=== PATIENT | male | born 1965 | race Caucasian/White ===

== ENCOUNTER 2024-03-18 02:21 | Day surgery (SDC) | payer BC, SELFPAY ==
[2024-03-18] VITALS (13 sets, daily range): BP systolic 85–188; BP diastolic 55–111; PULSE 36–54; RESP 16–18; TEMP 35.9–36.9; O2SAT 94–99; BMI 33.9; BMI 34.4
--- NOTE | 2024-03-18 02:25 | ED.ABDPAIN ---
HPI - Abdominal Pain General Time Seen by Provider: 02:30 Date Seen: 03/18/24 Chief Complaint: Abdominal Pain Stated Complaint: upper R abdominal pain Time Seen by Provider: 03/18/24 02:25 Source: patient, RN notes reviewed and old records reviewed Mode of arrival: ambulatory Limitations: no limitations History of Present Illness HPI narrative: 59-year-old male who presents today with abdominal pain. Patient notes right upper quadrant abdominal pain started after lunch today. Nausea with no vomiting. Says his abdomen feels bloated. No chest pain or shortness of breath. No fevers or chills. Prior nephrectomy. Related Data Home Medications ?Medication ?Instructions ?Recorded ?Confirmed lisinopril 10 mg tablet 10 mg PO DAILY 03/18/24 03/18/24 phentermine 37.5 mg capsule 37.5 mg PO DAILY 03/18/24 03/18/24 sildenafil 100 mg tablet 100 mg PO DAILY PRN 03/18/24 03/18/24 topiramate 25 mg tablet 25 mg PO DAILY 03/18/24 03/18/24 Previous Rx's ?Medication ?Instructions ?Recorded hydrocodone 5 mg-acetaminophen 325 1 - 2 tab PO Q6H PRN Pain #20 tabs 03/18/24 mg tablet Allergies Allergy/AdvReac Type Severity Reaction Status Date / Time Penicillins Allergy Verified 03/18/24 02:33 PFSH PFSH Family History (Updated 03/18/24 @ 07:07 by Severo Avendaño MD) Mother Ovarian cancer Other CHF (congestive heart failure) Social History Narrative: Single, [id number] history of smoking quit about 10 years ago but recently started occasional cigarettes rare use of alcohol. 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 What is your current living situation?: I presently have a place to live Problems where you live: no known problems Problems where you live details: n/a In the past 12 months, utilities in danger of being shut off: no In past 12 months, lack of transportation kept you from medical appts, meetings, work, or getting things needed for daily living: no In the past 12 mos, have been you worried that your food would run out before you had money to buy more?: never true In the past 12 mos, the food you bought just didn't last and you didn't have money to buy more?: never true Smoking Status: Light tobacco smoker What tobacco products do you use: cigarettes Do you use any of these nicotine containing products: None Nicotine containing products detail: Smokes two cigarettes a day. Quit 10 years ago. Then started smoking two cigarettes/day about 6 months ago. Was previously a 20 year smoker. How often do you have a drink containing alcohol: 2-4 times a month Alcohol type: other Alcohol type details: [facility] AUDIT-C Alcohol total score: 2 Non-prescribed substance use: denies use Caffeine: Yes How often does anyone, including family, friends and others, physically hurt you: never How often does anyone, including family, friends and others, insult or talk down to you: never How often does anyone, including family, friends and others, threaten you with harm: never How often does anyone, including family, friends and others, scream or curse at you: never service: No Exam Narrative: Exam Narrative: General: Well-developed and well-nourished, no acute distress Head: Atraumatic and normocephalic Eyes: Pupils are equal reactive, extraocular motions intact, conjunctiva clear ENT: External nose and ears are normal, posterior pharynx without erythema or exudate Neck: No midline cervical tenderness, full spontaneous range of motion the neck, trachea midline, no adenopathy Heart: Bradycardic rate and rhythm no murmurs or thrills Lungs: Clear to auscultation bilaterally without wheezes or crackles Abdomen: Soft, RUQ tenderenss, nondistended with active bowel sounds Musculoskeletal: No tenderness, deformity, or edema Neurologic: Awake, alert, and oriented x3, no gross focal neurologic deficits, cranial nerves intact as tested Psych: Mood and affect are appropriate Skin: No rashes Const: Vital Signs, click to edit/add: Vital Signs - 24 hr 03/18/24 02:30 03/18/24 03:04 Temperature 96.7 F L Pulse Rate [Pulse Oximeter] 44 L 44 L Respiratory Rate 16 18 Blood Pressure [Ri ght Upper Arm] 188/111 H 151/99 H Pulse Oximetry 99 99 Oxygen Delivery Me thod Room Air Room Air Course Course ED Course: Patient seen examined, presents with right upper quadrant abdominal pain today. Patient reports history of prior nephrectomy. On exam, bradycardic but otherwise vital is stable. Labs are ordered along with right upper quadrant ultrasound, Dilaudid and Zofran. Did consider CT abdomen pelvis but patient has prior nephrectomy who would like to avoid IV contrast, noncontrast CT with poor sensitivity and specificity for cholecystitis. EKG ordered and independently interpreted by me performed at 2:33 a.m. with demonstrates rate 43, sinus rhythm, QTC of 380, [place] 170, no acute ischemic changes. Reevaluation(s) Time of Reevaluation #1: 03:28 Reevaluation #1: Labs independently interpreted by me with normal CBC, normal basic panel other than slightly elevated glucose at 136, normal hepatic panel, normal lipase. Minimal improvement after Dilaudid IV. Given normal lab evaluation so far with no indication of the biliary obstruction, will proceed with ultrasound but urinalysis ordered to evaluate for hematuria possible kidney stone. Time of Reevaluation #2: 04:26 Reevaluation #2: Patient more comfortable after 2nd dose of Dilaudid. Ultrasound independently interpreted by me with no wall thickening or pericholecystic fluid but there are multiple gallstones including 1 that appears to be lodged in the gallbladder neck. This revealed sources patient's pain, however with hematuria concern for possible kidney stone as well which could be catastrophic in this patient with unilateral kidney, CT ordered to evaluate for secondary cause of pain, will do this without contrast. Time of Reevaluation #3: 05:09 Reevaluation #3: Reviewed CT scan which again demonstrates gallbladder stones including 1 that appears to be lodged in the gallbladder neck, no evidence for ureteral stone or renal pathology. Plan to discuss with General surgery. Additional Reevaluation(s): 6:04 a.m. care discussed with Dr. Lucio, general surgery who recommends admission hospitalist and plan for surgery later this afternoon. Discussed antibiotics, patient will be started on cefepime and Flagyl given penicillin allergy. 6:09 a.m. care discussed with Dr. Avendaño, hospitalist for admission. Vital Signs Vital signs: Initial Vital Signs Temperature 96.7 F L 03/18/24 02:30 Temperature Source Temporal Artery Scan 03/18/24 02:30 Pulse Rate 44 L 03/18/24 02:30 Respiratory Rate 16 03/18/24 02:30 Blood Pressure 188/111 H 03/18/24 02:30 Blood Pressure Mean 136 H 03/18/24 02:30 Blood Pressure Position Supine 03/18/24 02:30 Pulse Oximetry 99 03/18/24 02:30 Oxygen Delivery Method Room Air 03/18/24 02:30 Vital Signs Temperature 96.7 F L 03/18/24 02:30 Pulse Rate 44 L 03/18/24 02:30 Respiratory Rate 16 03/18/24 02:30 Blood Pressure 188/111 H 03/18/24 02:30 Pulse Oximetry 99 03/18/24 02:30 Oxygen Delivery Method Room Air 03/18/24 02:30 Temperature 98.5 F 03/18/24 14:45 Pulse Rate 52 L 03/18/24 15:45 Respiratory Rate 16 03/18/24 15:45 Blood Pressure 124/82 03/18/24 15:45 Pulse Oximetry 98 03/18/24 15:45 Oxygen Delivery Method Room Air 03/18/24 15:45 Oxygen Flow Rate 0 03/18/24 15:45 Medications Administered Medications: Discontinued Medications Generic Name Dose Route Start Last Admin Trade Name Freq PRN Reason Stop Dose Admin Bupivacaine HCl 30 ml 03/18/24 14:01 03/18/24 13:30 Bupivacaine 0.25% 30 Ml INJECTION 03/18/24 14:02 20 ml ONCE ONE Administration Fentanyl 50 mcg 03/18/24 13:01 03/18/24 15:10 Fentanyl 100 Mcg/2 Ml Inj IVP 50 mcg Q5M PRN Administration Pain Hydromorphone HCl 0.5 mg 03/18/24 02:39 03/18/24 02:50 Hydromorphone 0.5 Mg/0.5 Ml Inj IVP 03/18/24 02:40 0.5 mg ONCE ONE Administration Hydromorphone HCl 0.5 mg 03/18/24 03:27 03/18/24 03:39 Hydromorphone 0.5 Mg/0.5 Ml Inj IVP 03/18/24 03:28 0.5 mg ONCE ONE Administration Hydromorphone HCl 0.5 mg 03/18/24 07:22 03/18/24 08:00 Hydromorphone 0.5 Mg/0.5 Ml Inj IVP 0.5 mg Q1H PRN Administration Moderate Pain Hydroxyzine Pamoate 25 mg 03/18/24 13:01 03/18/24 15:10 Hydroxyzine Pamoate 25 Mg Capsule PO 03/18/24 13:02 25 mg ONCE ONE Administration Cefepime HCl 1 gm/ Sodium 100 mls @ 200 mls/hr 03/18/24 06:05 03/18/24 08:11 Chloride IVPB 03/18/24 06:06 200 mls/hr ONCE ONE Administration Metronidazole 500 mg in 100 mls @ 100 mls/hr 03/18/24 06:05 03/18/24 06:42 Metronidazole IVPB 03/18/24 07:04 100 mls/hr ONCE ONE Administration Sodium Chloride 1,000 mls @ 100 mls/hr 03/18/24 07:27 03/18/24 07:54 0.9 % Sodium Chloride 1000 Ml IV 100 mls/hr .Q10H FRITZ Administration Dextrose/Sodium Chloride 1,000 mls @ 125 mls/hr 03/18/24 08:00 03/18/24 08:10 5 % Dextrose/0.9% Sod Chloride IV 125 mls/hr .Q8H FRITZ Administration Cefazolin Sodium 2 gm/ Sodium 100 mls @ 200 mls/hr 03/18/24 13:22 03/18/24 12:50 Chloride IVPB 03/18/24 13:23 200 mls/hr ONCE ONE Administration Lisinopril 10 mg 03/18/24 09:00 03/18/24 10:43 Lisinopril 10 Mg Tablet PO 10 mg DAILY FRITZ Administration Ondansetron HCl 4 mg 03/18/24 02:39 03/18/24 02:51 Ondansetron 2 Mg/Ml Inj IVP 03/18/24 02:40 4 mg ONCE ONE Administration Sodium Chloride 5 ml 03/18/24 09:00 03/18/24 08:00 Sodium Chloride 0.9 % (Flush) 10 Ml Syringe IVF 5 ml BID FRITZ Administration MDM - Abdominal Pain Lab Data Labs: Lab Results 03/18/24 03/18/24 Range/Units 02:45 03:30 WBC 9.71 (4.50-11.00) K/uL RBC 4.71 (4.30-5.90) m/uL Hgb 14.3 (13.5-17.5) gm/dL Hct 42.8 (37.0-53.0) % MCV 91 (80-100) fL MCH 30 (26-34) pg MCHC 33 (32-36) gm/dL RDW Coeff of Kishan 12.3 (11.5-15.5) % Plt Count 229 (140-440) K/uL Neut % (Auto) 68.1 (42.0-72.0) % Lymph % (Auto) 21.8 (20-44) % [place] % (Auto) 7.2 (0.0-11.0) % Eos % (Auto) 1.8 (0.0-7.0) % Baso % (Auto) 0.3 (0.0-3.0) % Neut # (Auto) 6.61 (1.7-7.0) K/uL Lymph # (Auto) 2.12 (0.90-2.90) K/uL [place] # (Auto) 0.70 (0.00-0.90) K/UL Eos # (Auto) 0.17 (0.00-0.50) K/uL Baso # (Auto) 0.03 (0.00-0.30) K/uL Abs Immat Gran (auto) 0.08 (0.00-0.30) K/uL Imm/Tot Granulo (auto) 0.8 % Sodium 139 (135-149) mmol/L Potassium 4.1 (3.6-5.1) mmol/L Chloride 106 (96-114) mmol/L Carbon Dioxide 24 (20-32) mmol/L Anion Gap 9 (7-15) mEq/L BUN 26 (7-30) mg/dL Creatinine 1.5 (0.5-1.5) mg/dL Estimated Creat Clear 58.92 Estimated GFR 54 ml/min Glucose 136 H (60-115) mg/dL Calcium 10.9 H (8.4-10.6) mg/dL Magnesium 2.0 (1.5-2.6) mg/dL Total Bilirubin 0.6 (0.1-1.5) mg/dL Direct Bilirubin 0.2 (0.0-0.5) mg/dL AST 29 (12-35) U/L ALT 20 (4-50) U/L Alkaline Phosphatase 88 (40-150) U/L Total Protein 7.6 (6.0-8.3) g/dL Albumin 4.7 (3.3-5.0) g/dL Lipase 189 (23-300) U/L Urine Color Yellow (Yellow) Urine Appearance Clear (Clear) Urine pH 6.5 (5.0-8.5) Ur Specific [place] >= 1.030 (1.000-1.030) Urine Protein Trace A (Negative) Urine Glucose (UA) Negative (Negative) Urine Ketones Negative (Negative) Urine Blood Trace-intact A (Negative) Urine Nitrite Negative (Negative) Urine Bilirubin Negative (Negative) Urine Urobilinogen 1.0 (0.2-1.0) Ur Leukocyte Esterase Negative (Negative) Urine RBC 0-2 (0-2) Urine WBC 0-2 (0-5) Ur Squamous Epith Cells Few (None-Few) Amorphous Sediment Few A (None) Urine Bacteria Few A (None) Discharge Plan Discharge Clinical Impression: Cholelithiasis, Biliary colic, Bradycardia, Acute cholecystitis Patient Disposition: Admitted As Observation Activity Level: Activity as Tolerated and No strenuous activity Activity Detail: No lifting more than 20 lb for 2 weeks. Discharge Diet: Regular
--- NOTE | 2024-03-18 02:40 | CRLHL7_ITS ---
For Patients: As a result of the Century Cures Act, medical imaging exams and procedure reports are released immediately into your electronic medical record. You may view this report before your referring provider. If you have questions, please contact your health care provider. INDICATION: Right upper quadrant abdomen pain. TECHNIQUE: Ultrasound abdomen limited. Sonographic images of the right upper quadrant were obtained using kirk-scale and color Doppler images. COMPARISON: None. FINDINGS: Liver: Normal in size and echotexture. No suspicious masses. No intrahepatic biliary dilatation. Gallbladder: Gallbladder is moderately distended. Multiple stones present with the largest measuring 1 cm. Normal wall thickness. No pericholecystic fluid. Positive Cabrales`s sign. Common bile duct: 2 mm. Pancreas: Unremarkable. Right kidney: Normal in size. Normal echotexture and cortex. No suspicious masses, stones, or hydronephrosis. Vasculature: Proximal abdominal aorta: Normal in caliber. IVC: Patent. Main portal vein: Patent. Ascites: None visualized. IMPRESSION: Cholelithiasis with moderate gallbladder distention and positive Cabrales`s sign but no wall thickening. Acute cholecystitis is possible but not definite. Dictated by Abdiel Acuna MD @ 03/18/2024 4:34:10 AM (Electronically Signed)
[2024-03-18 02:49] LABS: Basophils Absolute Auto 0.03 K/uL (0.00-0.30); Basophils Percent Auto 0.3 % (0.0-3.0); Eosinophils Absolute Auto 0.17 K/uL (0.00-0.50); Eosinophils Percent Auto 1.8 % (0.0-7.0); Hematocrit 42.8 % (37.0-53.0); Hemoglobin* 14.3 gm/dL (13.5-17.5); Immature Granulocytes Abs Auto 0.08 K/uL (0.00-0.30); Immature Granulocytes Pct Auto 0.8 %; Lymphocytes Absolute Auto 2.12 K/uL (0.90-2.90); Lymphocytes Percent Auto 21.8 % (20-44); Mean Corpuscular HGB Conc 33 gm/dL (32-36); Mean Corpuscular Hemoglobin 30 pg (26-34); Mean Corpuscular Volume 91 fL (80-100); Monocytes Percent Auto 7.2 % (0.0-11.0); Neutrophils Absolute Auto 6.61 K/uL (1.7-7.0); Neutrophils Percent Auto 68.1 % (42.0-72.0); Platelet Count* 229 K/uL (140-440); RDW Coefficient of Variation % 12.3 % (11.5-15.5); Red Blood Count 4.71 m/uL (4.30-5.90); White Blood Count* 9.71 K/uL (4.50-11.00)
[2024-03-18] MEDS: HYDROmorphone 0.5 mg/0.5 ml inj IVP ×3 (02:50→08:00)
[2024-03-18 02:51] LABS: Slide Review Reflex No
[2024-03-18] MEDS: ONDANSETRON 2 MG/ML inj 4 MG IVP (02:51)
[2024-03-18 03:02] LABS: Albumin* 4.7 g/dL (3.3-5.0); Chloride* 106 mmol/L (96-114)
[2024-03-18 03:03] LABS: Potassium* 4.1 mmol/L (3.6-5.1); Sodium* 139 mmol/L (135-149)
[2024-03-18 03:05] LABS: Alkaline Phosphatase* 88 U/L (40-150); Anion Gap 9 mEq/L (7-15); Aspartate Amino Transferase* 29 U/L (12-35); Bilirubin Direct* 0.2 mg/dL (0.0-0.5); Bilirubin Total* 0.6 mg/dL (0.1-1.5); Blood Urea Nitrogen* 26 mg/dL (7-30); Calcium* 10.9 mg/dL (8.4-10.6); Carbon Dioxide* 24 mmol/L (20-32); Creatinine* 1.5 mg/dL (0.5-1.5); Est. Creatinine Clearance* 58.92; Estimated Glomerular Filt Rate 54 ml/min; Glucose* 136 mg/dL (60-115); Lipase* 189 U/L (23-300); Total Protein* 7.6 g/dL (6.0-8.3)
[2024-03-18 03:06] LABS: Alanine Aminotransferase* 20 U/L (4-50)
[2024-03-18 03:39] LABS: Appearance Urine Clear (Clear); Bilirubin Urine Negative (Negative); Blood Urine Trace-intact (Negative); Color Urine Yellow (Yellow); Glucose Urine Negative (Negative); Ketones Urine Negative (Negative); Leukocyte Esterase Urine Negative (Negative); Nitrite Urine Negative (Negative); Protein Urine Trace (Negative); Specific Gravity Urine >= 1.030 (1.000-1.030); pH Urine 6.5 (5.0-8.5)
[2024-03-18 03:49] LABS: Amorphous Sediment Urine Few; Bacteria Urine Few; RBC Urine 0-2 (0-2); Squamous Epithelial Cell Urine Few (None-Few); WBC Urine 0-2 (0-5)
--- NOTE | 2024-03-18 04:27 | CRLHL7_ITS ---
For Patients: As a result of the Century Cures Act, medical imaging exams and procedure reports are released immediately into your electronic medical record. You may view this report before your referring provider. If you have questions, please contact your health care provider. INDICATION: Right abdominal pain and hematuria. TECHNIQUE: CT abdomen and pelvis without contrast. COMPARISON: None. FINDINGS: Lower chest: Noncalcified 7 mm nodule in the right lung base on series 3, image 20. Liver: Normal in size and attenuation. No suspicious masses. Gallbladder and bile ducts: Cholelithiasis with gallbladder dilatation and evidence of wall thickening. No biliary dilatation. Pancreas: Unremarkable. No mass or inflammation. Spleen: Normal in size. No masses. Adrenal glands: Nonspecific enlargement of the right adrenal gland. Kidneys: Normal right kidney. No current kidney or ureteral stone and no hydronephrosis or perinephric edema. Left kidney is absent. GI tract: Unremarkable. Normal in caliber. No sign of mass or inflammation. Normal appendix. Vasculature: Abdominal aorta is normal in caliber. Lymph nodes: No lymphadenopathy. Peritoneum/Abdominal Wall: Unremarkable. No sign of mass or infiltration. No free air or significant free fluid. Pelvis: Unremarkable. No pelvic masses. Bones: Unremarkable for age. IMPRESSION: 1. Cholelithiasis with evidence of gallbladder wall inflammation consistent with cholecystitis. 2. Remainder of the exam is unremarkable. 3. Left kidney is absent. No sign of kidney or ureteral stone or hydronephrosis in the right kidney. Please note that all CT scans at this facility use dose modulation, iterative reconstruction, and/or weight-based dosing when appropriate to reduce radiation dose to as low as reasonably achievable. Dictated by Abdiel Acuna MD @ 03/18/2024 5:23:10 AM (Electronically Signed)
[2024-03-18] MEDS: metroNIDAZOLE 500 MG/100 ML PIGGYBACK 100 MG IVPB (06:42)
--- NOTE | 2024-03-18 06:59 | W.PM.THH&P_ITS ---
Telehealth- H&P: HPI History of Present Illness Time Seen by Provider: 06:33 Date Seen: 03/18/24 Chief complaint: upper R abdominal pain Narrative: Richard Elmore is seen as an Interactive Telehealth visit. Richard Elmore is a 59 year old maleWith remote history of left nephrectomy for hypernephroma who was in his baseline state of health until yesterday postprandially he felt a sense of abdominal fullness. Last evening after supper he developed some mild right sided abdominal discomfort. He went to bed and then awoke with much more severe right upper quadrant abdominal pain. No nausea vomiting or fever. Pain reached its limit of tolerance so he he presented to the emergency room where he was discovered to have some early cholecystitis. Prior abdominal surgeries include left nephrectomy in 2012 and prior appendectomy. In general he is in good health with some mild essential hypertension. No personal family history of thrombophilia. Review of Systems Status of ROS: Reports: 10 or more systems reviewed and unremarkable except as noted in History and below PFSH PFS Family History (Updated 03/18/24 @ 07:07 by Severo Avendaño MD) Mother Ovarian cancer Other CHF (congestive heart failure) Social History Narrative: Single, [id number] history of smoking quit about 10 years ago but recently started occasional cigarettes rare use of alcohol. 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 Do you use any of these nicotine containing products: None Non-prescribed substance use: denies use Meds Home Medications and Allergies Home Medications ?Medication ?Instructions ?Recorded ?Confirmed ?Type lisinopril 10 mg tablet 10 mg PO DAILY 03/18/24 03/18/24 History sildenafil 100 mg tablet 100 mg PO DAILY PRN 03/18/24 03/18/24 History topiramate 25 mg tablet 25 mg PO DAILY 03/18/24 03/18/24 History Allergies Allergy/AdvReac Type Severity Reaction Status Date / Time Penicillins Allergy Verified 03/18/24 02:33 Exam Narrative Exam Narrative: Physical Exam GENERAL: ?vital signs reviewed, bp-mildly elevated. well developed and nourished, in no distress. clear sensorium, appears comfortable HEENT: pupils are equal round and reactive to light, extraocular movements are grossly within normal limits and oral mucosa is moist sclera non-icteric. Mallipautti class 1 NECK: Supple without lymphadenopathy or thyromegaly according to nursing staff examination observation HEART: Regular rate and rhythm without any rubs, murmurs, or gallops. LUNGS: Clear to auscultation bilaterally with good air movement throughout ABDOMEN: Observation from nurse assisted exam, abdomen appears soft, mild right periumbilical tenderness. mildly corpulent. , Positive bowel sounds noted. EXTREMITIES: Strength and sensation is observed to be grossly within normal limits in the upper and lower extremities.?mild 1+ edema R lower extremity with some mild right le atrophy. SKIN:? Observed warm and dry with color normal Const Vital Signs, click to edit/add: Vital Signs - 24 hr 03/18/24 02:30 03/18/24 03:04 Temperature 96.7 F L Pulse Rate [Pulse Oximeter] 44 L 44 L Respiratory Rate 16 18 Blood Pressure [Right Upper Arm] 188/111 H 151/99 H Pulse Oximetry 99 99 Oxygen Delivery Method Room Air Room Air Hospitalist - H&P: Result Labs Labs: Laboratory Results - last 24 hr 03/18/24 03/18/24 02:45 03:30 WBC 9.71 RBC 4.71 Hgb 14.3 Hct 42.8 MCV 91 MCH 30 MCHC 33 RDW Coeff of Kishan 12.3 Plt Count 229 Neut % (Auto) 68.1 Lymph % (Auto) 21.8 [place] % (Auto) 7.2 Eos % (Auto) 1.8 Baso % (Auto) 0.3 Neut # (Auto) 6.61 Lymph # (Auto) 2.12 [place] # (Auto) 0.70 Eos # (Auto) 0.17 Baso # (Auto) 0.03 Abs Immat Gran (auto) 0.08 Imm/Tot Granulo (auto) 0.8 Sodium 139 Potassium 4.1 Chloride 106 Carbon Dioxide 24 Anion Gap 9 BUN 26 Creatinine 1.5 Estimated Creat Clear 58.92 Estimated GFR 54 Glucose 136 H Calcium 10.9 H Magnesium 2.0 Total Bilirubin 0.6 Direct Bilirubin 0.2 AST 29 ALT 20 Alkaline Phosphatase 88 Total Protein 7.6 Albumin 4.7 Lipase 189 Urine Color Yellow Urine Appearance Clear Urine pH 6.5 Ur Specific [place] >= 1.030 Urine Protein Trace A Urine Glucose (UA) Negative Urine Ketones Negative Urine Blood Trace-intact A Urine Nitrite Negative Urine Bilirubin Negative Urine Urobilinogen 1.0 Ur Leukocyte Esterase Negative Urine RBC 0-2 Urine WBC 0-2 Ur Squamous Epith Cells Few Amorphous Sediment Few A Urine Bacteria Few A Imaging CT scan - abdomen: Radiologist's impression: 1. Cholelithiasis with evidence of gallbladder wall inflammation consistent with cholecystitis. 2. Remainder of the exam is unremarkable. 3. Left kidney is absent. No sign of kidney or ureteral stone or hydronephrosis in the right kidne abd [place] Cholelithiasis with moderate gallbladder distention and positive Cabrales`s sign but no wall thickening. Acute cholecystitis is possible but not definite. Assessment and Plan Assessment and plan (1) Acute cholecystitis: Status: Acute (2) Bradycardia: Status: Acute (3) Solitary kidney, acquired: Status: Acute (4) Essential (primary) hypertension: Status: Acute Plan 59-year-old gentleman who is normally in a state of good health with history of solitary kidney status post nephrectomy for hypernephroma in 2012 presents with symptoms consistent with acute biliary colic and ultrasound suggestive of early cholecystitis. Problems include: Acute cholecystitis Essential hypertension Solitary kidney Asymptomatic bradycardia Admit observation status post general surgery N.p.o. IV hydration Symptomatic treatment with hydromorphone and ondansetron as needed CODE STATUS is full DVT prophylaxis will be sequential intermittent compression devices, anticipate early ambulation and early discharge cefepime and metroniazole Telehealth: Statement Statement Telehealth Visit: Today's History and Physical is provided via interactive telehealth by Severo Avendaño MD.? Patient is located at [facility].? Provider is located at [facility].? Nursing staff assisted with the patient's exam. The visit being done today meets criteria for a telehealth visit and the patient or patient?s parent/guardian is aware the visit is a telehealth visit. Camera Start Time: 06:31 Camera End Time: 06:53
[2024-03-18] MEDS: 0.9 % SODIUM CHLORIDE 1000 ml 1,000 ML 100 ML IV (07:54)
[2024-03-18] MEDS: SODIUM CHLORIDE 0.9 % (FLUSH) 10 ML SYRINGE 5 ML IVF (08:00)
[2024-03-18] MEDS: 5 % DEXTROSE/0.9% SOD CHLORIDE 1,000 ML 125 ML IV (08:10)
[2024-03-18] MEDS: CEFEPIME HCL 1 GM in 0.9 % SODIUM CHLORIDE Mini-bag 100 ML IVPB (08:11)
[2024-03-18] MEDS: lisinopriL 10 MG TABLET PO (10:43)
[2024-03-18] MEDS: CEFAZOLIN 2 GM in 0.9 % SODIUM CHLORIDE Mini-bag 100 ML IVPB (12:50)
--- NOTE | 2024-03-18 12:56 | W.ANESCHARGE ---
Anesthesia Charges Start Date/Time Anesthesia Start Date: 03/18/24 Anesthesia Start Time: 12:31 Stop Date/Time Anesthesia Stop Date: 03/18/24 Anesthesia Stop Time: 14:06
[2024-03-18] MEDS: BUPIVACAINE 0.25% 30 ML INJECTION (13:30)
--- NOTE | 2024-03-18 13:52 | P.GSCN_ITS ---
History of Present Illness Consult details Date Seen: 03/18/24 Consult date: 03/18/24 Narrative: The patient is a 59-year-old male who presented to the emergency department early this morning with severe abdominal pain. He states that yesterday after lunch she noted some fullness. Then around 7:00 p.m. he developed what he felt was diffuse abdominal pain. He ate dinner around 8 and continued to have the pain which seemed to be more towards the right upper quadrant. He went to bed around 10:00 p.m. and then woke up at midnight with severe pain. This pain again was located now in the right upper quadrant. He had nausea but no vomiting. No fevers. He has had a normal bowel movement since his symptoms started. He has not had any urinary symptoms. He states nothing helped the pain. He felt it more with movement in the car. Tums did not alleviate his symptoms and therefore he came to the emergency department to be evaluated. [facility] Family History (Updated 03/18/24 @ 07:07 by Severo Avendaño MD) Mother Ovarian cancer Other CHF (congestive heart failure) Social History Narrative: Single, [id number] history of smoking quit about 10 years ago but recently started occasional cigarettes rare use of alcohol. 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 What is your current living situation?: I presently have a place to live Problems where you live: no known problems Problems where you live details: n/a In the past 12 months, utilities in danger of being shut off: no In past 12 months, lack of transportation kept you from medical appts, meetings, work, or getting things needed for daily living: no In the past 12 mos, have been you worried that your food would run out before you had money to buy more?: never true In the past 12 mos, the food you bought just didn't last and you didn't have money to buy more?: never true Smoking Status: Light tobacco smoker What tobacco products do you use: cigarettes Do you use any of these nicotine containing products: None Nicotine containing products detail: Smokes two cigarettes a day. Quit 10 years ago. Then started smoking two cigarettes/day about 6 months ago. Was previously a 20 year smoker. How often do you have a drink containing alcohol: 2-4 times a month Alcohol type: other Alcohol type details: seltzer AUDIT-C Alcohol total score: 2 Non-prescribed substance use: denies use Caffeine: Yes How often does anyone, including family, friends and others, physically hurt you : never How often does anyone, including family, friends and others, insult or talk down to you: never How often does anyone, including family, friends and others, threaten you with harm: never How often does anyone, including family, friends and others, scream or curse at you: never service: No Meds Home Medications and Allergies Home Medications ?Medication ?Instructions ?Recorded ?Confirmed ?Type lisinopril 10 mg tablet 10 mg PO DAILY 03/18/24 03/18/24 History phentermine 37.5 mg capsule 37.5 mg PO DAILY 03/18/24 03/18/24 History sildenafil 100 mg tablet 100 mg PO DAILY PRN 03/18/24 03/18/24 History topiramate 25 mg tablet 25 mg PO DAILY 03/18/24 03/18/24 History Allergies Allergy/AdvReac Type Severity Reaction Status Date / Time Penicillins Allergy Verified 03/18/24 02:33 Exam Narrative: Exam Narrative: General appearance: Alert, cooperative, and in no distress Eyes: PERRLA, eye lids clear, and sclera white HENT Head: Normocephalic Ears: External ears normal Pulmonary: Breathing nonlabored on room air Cardiovascular Heart: Regular rate Extremities: warm and well perfused Gastrointestinal Abdominal: Lower abdominal scars consistent with surgical history. Laparoscopic scars noted in the upper abdomen from prior nephrectomy. He is tender to palpation with a positive Cabrales sign in the right upper quadrant. Musculoskeletal: Extremities: Upper: Both upper extremities have normal joint range of motion and intact strength. Lower: Both lower extremities have normal joint range of motion and intact strength. Skin: Normal skin color, texture, and turgor. Neurologic: No focal deficits Psychiatric: Alert, oriented, cooperative, normal affect. Const: Vital Signs, click to edit/add: Vital Signs - 24 hr 03/18/24 02:30 03/18/24 03:04 03/18/24 06:57 Temperature 96.7 F L 97.3 F L Pulse Rate [Pulse Oximeter] 44 L 44 L 48 L Respiratory Rate 16 18 18 Blood Pressure [Ri ght Arm] 159/100 H Blood Pressure [Ri ght Upper Arm] 188/111 H 151/99 H Pulse Oximetry 99 99 98 Oxygen Delivery Me thod Room Air Room Air Room Air 03/18/24 06:57 Temperature Pulse Rate [Pulse Oximeter] Respiratory Rate Blood Pressure [Ri ght Arm] Blood Pressure [Ri ght Upper Arm] Pulse Oximetry 98 Oxygen Delivery Me thod Room Air Results Labs Labs: Abnormal lab results 03/18/24 03/18/24 Range/Units 02:45 03:30 Glucose 136 H (60-115) mg/dL Calcium 10.9 H (8.4-10.6) mg/dL Urine Protein Trace A (Negative) Urine Blood Trace-intact A (Negative) Amorphous Sediment Few A (None) Urine Bacteria Few A (None) Diabetes panel 03/18/24 Range/Units 02:45 Sodium 139 (135-149) mmol/L Potassium 4.1 (3.6-5.1) mmol/L Chloride 106 (96-114) mmol/L Carbon Dioxide 24 (20-32) mmol/L BUN 26 (7-30) mg/dL Creatinine 1.5 (0.5-1.5) mg/dL Glucose 136 H (60-115) mg/dL Calcium 10.9 H (8.4-10.6) mg/dL AST 29 (12-35) U/L ALT 20 (4-50) U/L Alkaline Phosphatase 88 (40-150) U/L Total Protein 7.6 (6.0-8.3) g/dL Albumin 4.7 (3.3-5.0) g/dL Calcium panel 03/18/24 Range/Units 02:45 Calcium 10.9 H (8.4-10.6) mg/dL Albumin 4.7 (3.3-5.0) g/dL Pituitary panel 03/18/24 Range/Units 02:45 Sodium 139 (135-149) mmol/L Potassium 4.1 (3.6-5.1) mmol/L Chloride 106 (96-114) mmol/L Carbon Dioxide 24 (20-32) mmol/L BUN 26 (7-30) mg/dL Creatinine 1.5 (0.5-1.5) mg/dL Glucose 136 H (60-115) mg/dL Calcium 10.9 H (8.4-10.6) mg/dL Adrenal panel 03/18/24 Range/Units 02:45 Sodium 139 (135-149) mmol/L Potassium 4.1 (3.6-5.1) mmol/L Chloride 106 (96-114) mmol/L Carbon Dioxide 24 (20-32) mmol/L BUN 26 (7-30) mg/dL Creatinine 1.5 (0.5-1.5) mg/dL Glucose 136 H (60-115) mg/dL Calcium 10.9 H (8.4-10.6) mg/dL Total Bilirubin 0.6 (0.1-1.5) mg/dL AST 29 (12-35) U/L ALT 20 (4-50) U/L Alkaline Phosphatase 88 (40-150) U/L Total Protein 7.6 (6.0-8.3) g/dL Albumin 4.7 (3.3-5.0) g/dL All other labs normal. Imaging Abdomen CT scan report/results: report reviewed and image reviewed Abdominal ultrasound report/results: report reviewed and image reviewed Additional studies: CT scan of the abdomen shows gallbladder inflammation with cholelithiasis. Ultrasound of the abdomen shows gallbladder distention and cholelithiasis. He has a small positive sonographic Cabrales sign. No wall thickening was seen but concern findings were concerning for possible cholecystitis. Common bile duct was noted to be 2 mm. Progress Note:A&P Assessment and plan (1) Acute cholecystitis: Status: Acute (2) Solitary kidney, acquired: Status: Acute (3) Bradycardia: Status: Acute Plan The patient is a 51-year-old male with acute cholecystitis. I explained that the treatment for this is laparoscopic cholecystectomy. We discussed the procedure as well as risks and benefits of surgery which include bleeding, infection, bile leak, conversion to open or injury to other structures, specifically the common bile duct. We also discussed recovery. He is agreeable to proceed we will plan on surgery today. He understands he may be able to di scharge postoperatively depending on surgical findings.
--- NOTE | 2024-03-18 13:59 | P.GSOP_ITS ---
Operative Note Date of procedure: 03/18/24 Pre-op diagnosis: Acute cholecystitis Post-op diagnosis: Same Type of Procedure: Laparoscopic cholecystectomy Indications: The patient is a 59-year-old male who presented to the emergency department with acute upper abdominal pain. He was found to have acute cholecystitis. I recommended cholecystectomy and he agreed to proceed. Procedure Description: After discussing the risks and benefits of the procedure, the patient signed informed consent.? The operative site was marked and the patient was brought to the operating room and placed on the operating table in supine position.? Care was taken to pad the patient's pressure points.?? The patient was then intubated by anesthesia.?? The operative site was then prepped and draped in the usual sterile fashion.? A time-out was then performed. Entrance to the abdomen was gained via a 5 mm Visiport in the left upper quadrant. The abdomen was insufflated and briefly surveyed for signs of injury. There was none. A 10 mm umbilical port was placed as well as 2 working ports along the right costal margin, all under direct vision. The patient was then placed in reverse Trendelenburg position with the right side up. The gallbladder was edematous. There was ascites noted in the upper abdomen. A needle was used to decompress the gallbladder. Dark bile was aspirated. Once this was done, the fundus was grasped and retracted cephalad. The infundibulum was grasped. A combination of hook cautery and blunt dissection was used to carefully dissect out the cystic duct and artery until they could clearly be seen entering the gallbladder without any intervening structures. The gallbladder was dissected off the cystic plate to achieve the critical view. Once this was achieved the cystic duct and artery were each clipped with 2 clips proximally and 1 clip distally and transected with the scissors. The gallbladder was then taken off of the liver bed and removed from the abdomen using an Endo-Catch bag. The gallbladder bed was surveyed for hemostasis which appeared adequate. A small am ount of bile which had spilled was suctioned from the abdomen. The umbilical port fascia was closed with 0 Vicryl using a Gibran-Jose device. The remaining ports were then removed and the abdomen desufflated. The skin was closed with absorbable subcuticular suture. Instrument sponge and needle counts were correct at the end of the case. The patient was then woken and transferred to the PACU in stable condition. ? The patient tolerated the procedure well. Findings: Acute cholecystitis. Anesthesia: GETA Surgeon: Trinh Lucio MD Estimated blood loss (mL): 5 Specimen: Gallbladder Condition: stable Disposition: PACU
--- NOTE | 2024-03-18 14:09 | W.ANESCHARGE ---
Anesthesia Charges Start Date/Time Anesthesia Start Date: 03/18/24 Anesthesia Start Time: 12:31 Stop Date/Time Anesthesia Stop Date: 03/18/24 Anesthesia Stop Time: 14:06
[2024-03-18] MEDS: hydrOXYzine pamoate 25 MG CAPSULE PO (15:10)
[2024-03-18] MEDS: fentaNYL 100 MCG/2 ML inj 50 MCG IVP (15:10)
== END 2024-03-18 16:58 | disposition home or self-care (01) ==
LOC: ED 06:10 → MEDSURG 06:50 → SS 08:54 → MEDSURG 08:55 → SS 14:46
PROVIDERS: Emergency Provider Family Medicine; PCP Family Medicine; Visit Provider Surgery
PROC: 0FT44ZZ Resection of Gallbladder, Percutaneous Endoscopic Approach (ICD-10-PCS; CPT 47562; principal; 2024-03-18 10:30)
DX: K80.12 Calculus of gallbladder with acute and chronic cholecystitis without obstruction (principal); R10.11 Right upper quadrant pain; R00.1 Bradycardia, unspecified; Z90.5 Acquired absence of kidney; I10 Essential (primary) hypertension
CPT/HCPCS: 47562; 00790; 36415; 74176; 76705; 80048; 80076; 81001; 83690; 83735; 85025; 87086; 88304; 99284; 99285; A9270; J0330; J0665; J0690; J0692; J1100; J1171; J1836; J1885; J2250; J2371; J2405; J2704; J2710; J3010; J7030; J7042